=== PATIENT | male | born 1965 | race Two or more races ===

== ENCOUNTER 2020-02-27 23:03 | Emergency (ER) | payer SELFPAY ==
[~2020-02-27] VITALS: Ht 162.6 cm; Wt 68.0 kg
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
[2020-02-27] MEDS ORDERED: HYDR-1179 PO (23:36)
[2020-02-28] MEDS ORDERED: KETOROLAC 60 MG/2 ML VIAL. IM ONE ×2 (00:05→00:30)
[2020-02-28] MEDS ORDERED: MORPHINE SULFATE 10 MG/ML SYRINGE. ONE (00:05)
[2020-02-28] MEDS ORDERED: BACITRACIN ZINC TOPICAL OINT PACKET. TP ONE (00:30)
[2020-02-28] MEDS ORDERED: DIPH,PERTUSS(ACELL),TET VAC/PF 0.5 ML SYRINGE. VAX IM ONE (00:30)
[2020-02-28] MEDS ORDERED: TETANUS AND DIPHTHERIA TOX/PF 0.5 ML VIAL. VAX IM ONE (00:30)
[2020-02-28] MEDS ORDERED: MORPHINE SULFATE 10 MG/ML SYRINGE. SQ ONE (00:30)
[2020-02-28 03:11] VITALS: BP 117/56
== END 2020-02-28 03:50 | disposition home or self-care (01) ==
LOC: ER 23:03
DX: T23.202A Burn of second degree of left hand, unspecified site, initial encounter (principal); T24.211A Burn of second degree of right thigh, initial encounter; F41.9 Anxiety disorder, unspecified; F17.210 Nicotine dependence, cigarettes, uncomplicated; X17.XXXA Contact with hot engines, machinery and tools, initial encounter; Y93.89 Activity, other specified; Y92.89 Other specified places as the place of occurrence of the external cause; Y99.8 Other external cause status
CPT/HCPCS: 16020; 90471; 90715; 96372; 99284; J1885; J2270